=== PATIENT | female | born 1970 | race Caucasian/White ===

== ENCOUNTER 2018-10-24 09:09 | Day surgery (SDC) | payer BC, OTHER ==
[~2018-10-24] VITALS: Wt 99.8 kg
[~2018-10-24 09:09] MED LIST: ASPI325 PO; Adipex-P37.5 MG PO; BIOTIN10000 MC1 PO; CALCIUM SUPPLEMENT PO; CEPH500 PO; CETI5 PO; DOCU100 PO; ETHINYL ESTRADIOL PO; HAIR SKIN NAIL1 EACH PO; HYDMOR2 PO; Hair, Skin & N1 EACH PO; IBUP800 PO; LEVONORGESTREL PO; LISI20 PO; MAXALT; NEOPOLDEXO; RIZATRIPTAN10 MG PO; Ventolin/Prove6.7 GM INH; WARF3 PO
--- NOTE | 2018-10-24 09:26 | NUR ---
Ambulatory in Day Surgery Surgical site prepped with 2% Chlorhexidine cloth wipe. History, Chart, Medications and Allergies reviewed before start of procedure.Lungs clear T/O to Auscultation. Patient confirms NPO status and agrees with scheduled surgery. Pre-Op teaching done. Pt verbalizes understanding. Patient reports completing Chlorhexadine shower X2 prior to admission to hospital.
--- NOTE | 2018-10-24 10:07 | NUR ---
JESSICA SWABS BILAT NARES PER ORDERS. CLARIFICATION OF ALLERGIES, PT WAS APPARENTLY TOLD THAT MEDICATIONS ON ALLERGY LIST WOULD NEED TO BE GIVEN WITH BENADRYL AND PT INITIALLY INFORMED RN THAT SHE TOLERATES THE NARCOTICS AND TORADOL WITH BENADRYL, LATER CLARIFIED THAT SHE HAS NEVER BEEN GIVEN NARCOTICS/TORADOL WITH BENADRYL.
--- NOTE | 2018-10-24 15:15 | NUR ---
10/24/18 1515 Carolina Lawrence VERIFICATIONS, EDITS.
--- NOTE | 2018-10-24 19:02 | NUR ---
SHIFT SUMMARY PT EATING AND DRINKING. PT VOIDED. PT AMBULATED IN TO BATHROOM WITH ASSIST. PT USING CALL LIGHT APPR. PT BEEN ASSISTED WITH ADL'S PRN. PT BEEN MED FOR PAIN.
[2018-10-25 05:49] LABS: BASOPHILS ABSOLUTE AUTO 0.03 K/mm3 (0.00-0.23); BASOPHILS PERCENT AUTO 0 % (0-2); EOSINOPHILS ABSOLUTE AUTO 0.02 K/mm3 (0.00-0.68); EOSINOPHILS PERCENT AUTO 0 % (0-6); Hematocrit 36.3 % (33.0-51.0); Hemoglobin 11.8 g/dL (11.5-16.0); IMMATURE GRAN ABSOLUTE AUTO 0.09 K/mm3 (0.00-0.10); IMMATURE GRAN PERCENT AUTO 1 % (0-1); LYMPHOCYTES ABSOLUTE AUTO 2.35 K/mm3 (0.84-5.20); LYMPHOCYTES PERCENT AUTO 13 % (21-46); MONOCYTES ABSOLUTE AUTO 1.73 K/mm3 (0.16-1.47); MONOCYTES PERCENT AUTO 9 % (4-13); Mean Corpuscular HGB 30.3 pg (26.0-34.0); Mean Corpuscular HGB Conc 32.5 g/dL (31.5-36.5); Mean Corpuscular Volume 93 fL (80-100); Mean Platelet Volume 10.2 fL (9.1-12.4); NEUTROPHILS ABSOLUTE AUTO 14.57 K/mm3 (1.96-9.15); NEUTROPHILS PERCENT AUTO 78 % (41-73); Platelet Count 401 K/mm3 (150-400); RDW Coefficient Variation 13.2 % (11.7-14.2); White Blood Cell Count 18.79 K/mm3 (4.00-11.30)
[2018-10-25 06:13] LABS: Anion Gap 8 mmol/L (6-16); Blood Urea Nitrogen 16 mg/dL (8-24); Bun/Creatinine Ratio 30.3 (12.0-20.0); CO2, Blood 27 mmol/L (21-32); Calcium, Blood 8.5 mg/dL (8.5-10.1); Chloride, Blood 104 mmol/L (98-108); Creatinine, Blood 0.53 mg/dL (0.40-1.00); Glomerular Filtration Rate >60 (60-); Glucose, Blood 121 mg/dL (70-99); Potassium, Blood 4.3 mmol/L (3.5-5.5); Sodium, Blood 139 mmol/L (136-145)
--- NOTE | 2018-10-25 08:58 | NUR ---
SHIFT SUMMARY PT A&O X4 T/O SHIFT. POD#1 R TKA; DRESSING TO R KNEE CDI T/O SHIFT. PT YANA N/T IN EXT; ALL EXT PWD; PPP X4. PAIN IN R KNEE MANGED PER EMAR. PT UP TO BSC AND TOILET WITH FWW AND SBA. NAUSEA MANGED WITH NON-PHARM INTERVENTIONS. ISABEL;S AND SCD'S TO BLE'S. LS CLEAR; RA; DENIES SOB. CALL LIGHT IN REACH; PT DEMONSTRATES USE. REPORT GIVEN TO DAY SHIFT RN.
[2018-10-25] MEDS ORDERED: HYDMOR2 PO (15:45)
[2018-10-25] MEDS ORDERED: CLIN300 PO (15:46)
[2018-10-25] MEDS ORDERED: Bactrim Ds Tab1 EACH PO (15:47)
[2018-10-25] MEDS ORDERED: ENOX40I SC (15:48)
--- NOTE | 2018-10-25 16:55 | NUR ---
DISCHARG: PT EATING AND DRINKING. PT REPORTS PAIN CONTROLLED ON PO PAIN MEDICATION. PT REPORTS HAVING APPR EQUIPMENT AT HOME. PT/FAMILY REPORTS UNDERSTANDING OF DISCHARGE INSTRUCTIONS. PT SENT WITH BELONGINGS, ICE MACHINE, SCRIPTS. PT CLEARED BY THERAPY TO GO HOME.
== END 2018-10-25 16:55 | disposition home or self-care (01) ==
LOC: ORSCMMR 09:09 → ORD 10:45 → ORSCMMR 10:45 → SURS 14:17 → ORSCMMR 10-25 16:55 → SURS 10-25 16:55
PROVIDERS: Orthopaedic Surgery
PROC: 0SRC0J9 Replacement of Right Knee Joint with Synthetic Substitute, Cemented, Open Approach (ICD-10-PCS; principal; 2018-10-24 10:45)
PROC: 8E0YXBZ Computer Assisted Procedure of Lower Extremity (ICD-10-PCS; principal; 2018-10-24 10:45)
DX: M17.11 Unilateral primary osteoarthritis, right knee (principal); J45.909 Unspecified asthma, uncomplicated; E66.01 Morbid (severe) obesity due to excess calories; Z68.39 Body mass index [BMI] 39.0-39.9, adult; Z79.899 Other long term (current) drug therapy; Z79.82 Long term (current) use of aspirin
CPT/HCPCS: 36415; 73560-RT; 80048; 83735; 85025; 88300; 97110; 97116; 97162; 97530; C1713; C1776; J0171; J0690; J0735; J1170; J1200; J1650; J2250; J2370; J2795; J3370; J7120; Q0163

== ENCOUNTER → 2018-11-24 | Outpatient (CLI) | payer BC, OTHER ==
[~2018-11-24] MED LIST changes: +Bactrim Ds Tab1 EACH PO; +CLIN300 PO; +ENOX40I SC
== END | disposition home or self-care (01) ==
LOC: LAB SHORT 13:02 → LAB EV 13:02
DX: N39.0 Urinary tract infection, site not specified (principal)
CPT/HCPCS: 87077; 87086; 87186

== ENCOUNTER → 2019-01-02 | Outpatient (CLI) | payer BC, OTHER ==
[2019-01-04 15:06] LABS: HPV 16 Negative (Negative); HPV 18 Negative (Negative); HPV OTHER HR TYPES Negative (Negative)
== END | disposition home or self-care (01) ==
LOC: LAB 17:32 → LAB SHORT 17:32
PROVIDERS: Obstetrics & Gynecology Gynecology
DX: Z12.72 Encounter for screening for malignant neoplasm of vagina (principal)
CPT/HCPCS: 87624; G0123

== ENCOUNTER 2020-03-30 00:18 | Day surgery (SDC) | payer BC, OTHER | END 2020-03-30 22:55 | disposition home or self-care (01) | LOC: WOUND 00:18 | DX: L97.829 Non-pressure chronic ulcer of other part of left lower leg with unspecified severity (principal); L03.116 Cellulitis of left lower limb | CPT/HCPCS: G0463 ==

== ENCOUNTER 2020-04-06 00:24 | Day surgery (SDC) | payer BC, OTHER | END 2020-04-06 23:10 | disposition home or self-care (01) | LOC: WOUND 00:24 | DX: L97.822 Non-pressure chronic ulcer of other part of left lower leg with fat layer exposed (principal); L03.116 Cellulitis of left lower limb; I10 Essential (primary) hypertension; E66.9 Obesity, unspecified; Z68.41 Body mass index [BMI] 40.0-44.9, adult; Z79.899 Other long term (current) drug therapy ==

== ENCOUNTER 2020-04-16 00:21 | Day surgery (SDC) | payer BC, OTHER | END 2020-04-16 22:45 | disposition home or self-care (01) | LOC: WOUND 00:21 | DX: L97.829 Non-pressure chronic ulcer of other part of left lower leg with unspecified severity (principal) ==

== ENCOUNTER 2020-04-20 00:18 | Day surgery (SDC) | payer BC, OTHER | END 2020-04-20 22:43 | disposition home or self-care (01) | LOC: WOUND 00:18 | DX: S81.802A Unspecified open wound, left lower leg, initial encounter (principal); L08.9 Local infection of the skin and subcutaneous tissue, unspecified; I96 Gangrene, not elsewhere classified; I10 Essential (primary) hypertension; M19.90 Unspecified osteoarthritis, unspecified site; J32.8 Other chronic sinusitis; J45.909 Unspecified asthma, uncomplicated; F41.8 Other specified anxiety disorders; E66.9 Obesity, unspecified; Z68.41 Body mass index [BMI] 40.0-44.9, adult; Z86.718 Personal history of other venous thrombosis and embolism; Z88.1 Allergy status to other antibiotic agents; Z88.5 Allergy status to narcotic agent; Z88.6 Allergy status to analgesic agent; Z88.7 Allergy status to serum and vaccine; Z88.8 Allergy status to other drugs, medicaments and biological substances; Z79.899 Other long term (current) drug therapy; X58.XXXA Exposure to other specified factors, initial encounter ==

== ENCOUNTER 2020-04-28 00:29 | Day surgery (SDC) | payer BC | END 2020-04-28 22:38 | disposition home or self-care (01) | LOC: WOUND 00:29 | DX: L97.829 Non-pressure chronic ulcer of other part of left lower leg with unspecified severity (principal) ==

== ENCOUNTER 2020-05-12 00:39 | Day surgery (SDC) | payer BC | END 2020-05-12 22:45 | disposition home or self-care (01) | LOC: WOUND 00:39 | DX: L97.829 Non-pressure chronic ulcer of other part of left lower leg with unspecified severity (principal) ==

== ENCOUNTER 2020-05-19 00:12 | Day surgery (SDC) | payer BC | END 2020-05-19 22:41 | disposition home or self-care (01) | LOC: WOUND 00:12 | DX: L97.829 Non-pressure chronic ulcer of other part of left lower leg with unspecified severity (principal) ==

== ENCOUNTER 2020-05-26 05:25 | Day surgery (SDC) | payer BC, OTHER | END 2020-05-26 23:04 | disposition home or self-care (01) | LOC: WOUND 05:25 | DX: S81.802A Unspecified open wound, left lower leg, initial encounter (principal); L08.9 Local infection of the skin and subcutaneous tissue, unspecified; I96 Gangrene, not elsewhere classified; I10 Essential (primary) hypertension; J32.8 Other chronic sinusitis; J45.909 Unspecified asthma, uncomplicated; F41.8 Other specified anxiety disorders; Z88.1 Allergy status to other antibiotic agents; Z88.5 Allergy status to narcotic agent; Z88.6 Allergy status to analgesic agent; Z88.7 Allergy status to serum and vaccine; Z88.8 Allergy status to other drugs, medicaments and biological substances; Z79.01 Long term (current) use of anticoagulants; Z79.899 Other long term (current) drug therapy; Z86.718 Personal history of other venous thrombosis and embolism; X58.XXXA Exposure to other specified factors, initial encounter | CPT/HCPCS: G0463 ==

== ENCOUNTER 2020-06-02 01:09 | Day surgery (SDC) | payer BC, OTHER | END 2020-06-02 23:23 | disposition home or self-care (01) | LOC: WOUND 01:09 | DX: L97.829 Non-pressure chronic ulcer of other part of left lower leg with unspecified severity (principal) | CPT/HCPCS: G0463 ==

== ENCOUNTER 2020-06-22 12:27 | Emergency (ER) | payer BC ==
[~2020-06-22] VITALS: Ht 162.6 cm; Wt 122.5 kg
[2020-06-22 14:46] LABS: BASOPHILS ABSOLUTE AUTO 0.09 K/mm3 (0.00-0.23); BASOPHILS PERCENT AUTO 1 % (0-2); EOSINOPHILS ABSOLUTE AUTO 0.34 K/mm3 (0.00-0.68); EOSINOPHILS PERCENT AUTO 4 % (0-6); Hematocrit 44.3 % (33.0-51.0); Hemoglobin 13.6 g/dL (11.5-16.0); IMMATURE GRAN ABSOLUTE AUTO 0.03 K/mm3 (0.00-0.10); IMMATURE GRAN PERCENT AUTO 0 % (0-1); LYMPHOCYTES ABSOLUTE AUTO 2.62 K/mm3 (0.84-5.20); LYMPHOCYTES PERCENT AUTO 28 % (21-46); MONOCYTES ABSOLUTE AUTO 0.64 K/mm3 (0.16-1.47); MONOCYTES PERCENT AUTO 7 % (4-13); Mean Corpuscular HGB 29.7 pg (26.0-34.0); Mean Corpuscular HGB Conc 30.7 g/dL (31.5-36.5); Mean Corpuscular Volume 97 fL (80-100); Mean Platelet Volume 9.4 fL (9.1-12.4); NEUTROPHILS ABSOLUTE AUTO 5.62 K/mm3 (1.96-9.15); NEUTROPHILS PERCENT AUTO 60 % (41-73); Platelet Count 386 K/mm3 (150-400); RDW Coefficient Variation 13.7 % (11.7-14.2); RDW Standard Deviation 48.7 fL (35.1-46.3); Red Blood Cell Count 4.58 M/mm3 (3.80-5.20); White Blood Cell Count 9.34 K/mm3 (4.00-11.30)
[2020-06-22 15:31] LABS: Alanine Aminotransfer (ALT/SGP 30 U/L (12-78); Albumin, Blood 4.2 g/dL (3.4-5.0); Albumin/Globulin Ratio 1.1 (0.8-1.8); Alk Phos 122 U/L (50-136); Anion Gap 5 mmol/L (6-16); Aspartate Aminotrans (AST/SGOT 17 U/L (12-37); Bilirubin, Total 0.3 mg/dL (0.1-1.0); Blood Urea Nitrogen 16 mg/dL (8-24); Bun/Creatinine Ratio 33.1 (12.0-20.0); CO2, Blood 26 mmol/L (21-32); Calcium, Blood 9.8 mg/dL (8.5-10.1); Chloride, Blood 111 mmol/L (98-108); Creatinine, Blood 0.48 mg/dL (0.40-1.00); Globulin, Blood 3.8 g/dL (2.2-4.0); Glomerular Filtration Rate >60 (60-); Glucose, Blood 90 mg/dL (70-99); Potassium, Blood 4.2 mmol/L (3.5-5.5); Sodium, Blood 142 mmol/L (136-145)
[2020-06-22] MEDS ORDERED: XARELTO15 MG PO (16:14)
== END 2020-06-22 16:26 | disposition home or self-care (01) ==
LOC: VAS 12:27 → ER 12:27 → VAS 16:26
PROVIDERS: Physician Assistant
DX: O22.30 Deep phlebothrombosis in pregnancy, unspecified trimester (principal); E78.5 Hyperlipidemia, unspecified; Z3A.00 Weeks of gestation of pregnancy not specified; Z79.899 Other long term (current) drug therapy; Z88.5 Allergy status to narcotic agent; Z88.8 Allergy status to other drugs, medicaments and biological substances; Z88.7 Allergy status to serum and vaccine; Z88.6 Allergy status to analgesic agent; Z88.1 Allergy status to other antibiotic agents
CPT/HCPCS: 36415; 80053; 85025; 93971; 99284-25

== ENCOUNTER 2020-09-28 11:03 | Day surgery (SDC) | payer BC, SELFPAY ==
[~2020-09-28] VITALS: Ht 162.6 cm; Wt 125.6 kg
[~2020-09-28 11:03] MED LIST changes: +XARELTO15 MG PO
[2020-09-28] MEDS ORDERED: HYDHCL25 PO (12:18)
--- NOTE | 2020-09-28 13:10 | NUR ---
09/28/20 1310 Sophy Almanzar IVPB STARTED BY ANESTHESIA AT [id number]
--- NOTE | 2020-09-28 15:19 | NUR ---
09/28/20 1519 TRUDY MEAD PT TO STEP DOWN, SBA TO RECLINER. VSS ON ROOM AIR. IV PATENT. PAIN REPORTED 01/28, MEDICATED WITH IV FENTANYL. PT HAS SCOPALAMINE PATCH IN PLACE AND IS STILL REPORTING SOME DIZZINESS AND LIGHTHEADEDNESS. PT DENIES NEED FOR IV NAUSEA MEDICATION AT THIS ITME.
== END 2020-09-28 16:19 | disposition home or self-care (01) ==
LOC: ORSCSDS 11:03
PROVIDERS: Podiatrist Foot & Ankle Surgery
PROC: 0SGG04Z Fusion of Left Ankle Joint with Internal Fixation Device, Open Approach (ICD-10-PCS; principal; 2020-09-28 12:30)
DX: M13.872 Other specified arthritis, left ankle and foot (principal); M25.372 Other instability, left ankle; I10 Essential (primary) hypertension; J45.909 Unspecified asthma, uncomplicated; Z86.718 Personal history of other venous thrombosis and embolism; E66.01 Morbid (severe) obesity due to excess calories; Z68.42 Body mass index [BMI] 45.0-49.9, adult; Z79.01 Long term (current) use of anticoagulants; Z79.899 Other long term (current) drug therapy
CPT/HCPCS: A9270; C1713; J0171; J0735; J1100; J1885; J2250; J2405; J2550; J2704; J2765; J2795; J3010; J3370; J7120

== ENCOUNTER → 2022-01-26 | Outpatient (CLI) | payer OTHER ==
[~2022-01-26] MED LIST changes: +HYDHCL25 PO
== END | disposition home or self-care (01) ==
LOC: LAB 14:30 → LAB SHORT 14:30
DX: R30.0 Dysuria (principal)
CPT/HCPCS: 87086

== ENCOUNTER 2022-04-29 08:03 | Day surgery (SDC) | payer OTHER ==
[~2022-04-29] VITALS: Ht 162.6 cm; Wt 127.0 kg
[2022-04-29] MEDS ORDERED: TOPI100 PO (08:32)
--- NOTE | 2022-04-29 09:11 | NUR ---
Ambulatory in Day Surgery. History, Chart, Medications and Allergies reviewed before start of procedure. Patient States Post-Procedure ride home has been arranged WITH MOM.
--- NOTE | 2022-04-29 09:44 | NUR ---
04/29/22 0944 Carolina Tovar HISTORY,CHART, MEDICATIONS AND ALLERGIES REVIEWED BEFORE START OF PROCEDURE. PATIENT CONFIRMS NPO STATUS AND AGREES WITH SCHEDULED PROCEDURE. 3-LEAD EKG REVIEWED WITH PHYSICIAN PRIOR TO START OF PROCEDURE. MONITOR INTACT WITH CONTINUOUS PULSE OXIMETRY, 3-LEAD EKG, CAPNOGRAPHY AND INTERMITTENT BP. SUPPLEMENTAL O2 TO BE TITRATED THROUGHOUT PROCEDURE TO MAINTAIN O2 SATURATION ABOVE 90%. PATIENT DETERMINED TO BE ASA APPROPRIATE FOR MODERATE SEDATION PRIOR TO START OF PROCEDURE BY DR. KAY CONSULT WITH DR. KOROMA CONSULTED PT DUE TO PATIENTS BMI OF 48.1 OKAYED FOR NURSE SEDATION.
--- NOTE | 2022-04-29 11:17 | NUR ---
PTS RX CALLED TO [facility] BY JOSE MIGUEL Molina RN.
--- NOTE | 2022-04-29 11:21 | NUR ---
PT C/O HEADACHE, STATES CAN WAIT TO TAKE SOMETHING WHEN SHE LEAVES. PT GIVEN ANOTHER WARM BLANKET, CALL LIGHT WITHIN REACH.
--- NOTE | 2022-04-29 12:22 | NUR ---
Patient States Post-Procedure ride home has been arranged. Discharge instructions reviewed with patient. Patient verbalizes understanding. Copy given to patient to take home. Tolerates po fluids. Discharged via wheelchair to private car for ride home.
== END 2022-04-29 12:20 | disposition home or self-care (01) ==
LOC: ORSCMMR 08:03 → ORD 09:30 → ORSCMMR 09:30
PROVIDERS: Internal Medicine Critical Care Medicine
PROC: 0BJ08ZZ Inspection of Tracheobronchial Tree, Via Natural or Artificial Opening Endoscopic (ICD-10-PCS; principal; 2022-04-29 09:30)
DX: R05.3 Chronic cough (principal); R09.82 Postnasal drip; K21.9 Gastro-esophageal reflux disease without esophagitis
CPT/HCPCS: A9270; J0171; J2250; J3010; J7120

== ENCOUNTER → 2022-07-22 | Outpatient (CLI) | payer OTHER ==
[~2022-07-22] MED LIST changes: +TOPI100 PO
[2022-07-22 16:28] LABS: BASOPHILS ABSOLUTE AUTO 0.09 K/mm3 (0.00-0.23); BASOPHILS PERCENT AUTO 1 % (0-2); EOSINOPHILS ABSOLUTE AUTO 0.08 K/mm3 (0.00-0.68); EOSINOPHILS PERCENT AUTO 1 % (0-6); Hemoglobin 14.8 g/dL (11.5-16.0); IMMATURE GRAN ABSOLUTE AUTO 0.07 K/mm3 (0.00-0.10); IMMATURE GRAN PERCENT AUTO 1 % (0-1); LYMPHOCYTES ABSOLUTE AUTO 1.99 K/mm3 (0.84-5.20); LYMPHOCYTES PERCENT AUTO 14 % (21-46); MONOCYTES ABSOLUTE AUTO 1.19 K/mm3 (0.16-1.47); MONOCYTES PERCENT AUTO 8 % (4-13); Mean Corpuscular HGB 31.4 pg (26.0-34.0); Mean Corpuscular HGB Conc 34.4 g/dL (31.5-36.5); Mean Corpuscular Volume 91 fL (80-100); Mean Platelet Volume 9.4 fL (9.1-12.4); NEUTROPHILS ABSOLUTE AUTO 11.27 K/mm3 (1.96-9.15); NEUTROPHILS PERCENT AUTO 77 % (41-73); Platelet Count 418 K/mm3 (150-400); RDW Coefficient Variation 13.1 % (11.7-14.2); RDW Standard Deviation 42.5 fL (35.1-46.3); Red Blood Cell Count 4.72 M/mm3 (3.80-5.20); White Blood Cell Count 14.69 K/mm3 (4.00-11.30)
[2022-07-22 16:32] LABS: Bun/Creatinine Ratio 19.3 (12.0-20.0); Calcium, Blood 9.4 mg/dL (8.5-10.1); Creatinine, Blood 0.83 mg/dL (0.40-1.00); Potassium, Blood 2.6 mmol/L (3.5-5.5)
== END | disposition home or self-care (01) ==
LOC: LAB SHORT 16:23 → LAB 16:23
PROVIDERS: Physician Assistant Surgical
DX: R00.0 Tachycardia, unspecified (principal)
CPT/HCPCS: 80048; 85025